=== PATIENT | male | born 1960 | race Caucasian/White ===

== ENCOUNTER 2019-01-05 05:30 | Inpatient (IN) | payer BC, OTHER ==
[2018-12-24 12:28] LABS: HEMATOCRIT 39.9 % (42.0-52.0); HEMOGLOBIN 13.7 gm/dL (14.0-18.0); MCH 30.8 pg (26.0-34.0); MCHC 34.4 g/dL (28.0-37.0); MCV 89.6 fL (80.0-100.0); RBC 4.45 mil/uL (4.50-6.00)
[2018-12-24 12:31] LABS: URINE BILIRUBIN NEGATIVE (Negative); URINE BLOOD NEGATIVE (Negative); URINE CLARITY CLEAR; URINE COLOR YELLOW; URINE GLUCOSE-RANDOM* NEGATIVE (Negative); URINE KETONES NEGATIVE (Negative); URINE LEUKOCYTES-REFLEX NEGATIVE (Negative); URINE NITRITE-REFLEX NEGATIVE (Negative); URINE PROTEIN (DIPSTICK) NEGATIVE (Negative); URINE UROBILINOGEN 0.2 E.U./dl (0.2-1.0)
[2018-12-24 12:39] LABS: PROTIME 10.3 Seconds (9.3-11.4)
[2018-12-24 12:45] LABS: ALBUMIN 4.2 g/dL (3.4-5.0); CALCIUM 9.9 mg/dL (8.5-10.1); CREATININE 1.3 mg/dL (0.7-1.3); POTASSIUM 4.1 mmol/L (3.5-5.1)
[2018-12-25 01:06] LABS: GLYCOHEMOGLOBIN (HGB A1C) 7.5 % (4.8-5.6)
--- NOTE | 2018-12-25 08:07 | EKG ---
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
[~2019-01-05] VITALS: Ht 167.6 cm; Wt 101.6 kg
[~2019-01-05 05:30] MED LIST: CELEXA20 MG PO; FENOFIBRATE145 MG PO; HYDROCHLOROTHIA25 M2 PO; IBUPROFEN 600600 M1 PO; LISINOPRIL2.5 MG PO; METFORMIN HCL500 MG PO; TOPROL XL100 MG PO; XANAX 0.25 MG0.25 MG PO
[2019-01-05 11:19] VITALS: BP 122/60
[2019-01-05 19:10] VITALS: BP 132/75
[2019-01-05 23:55] VITALS: BP 110/54
[2019-01-06 03:40] VITALS: BP 93/50
[2019-01-06 04:46] VITALS: BP 95/53
[2019-01-06 04:53] VITALS: BP 113/65
[2019-01-06 05:41] LABS: HEMATOCRIT 33.7 % (42.0-52.0); HEMOGLOBIN 11.3 gm/dL (14.0-18.0); MCH 30.5 pg (26.0-34.0); MCHC 33.7 g/dL (28.0-37.0); MCV 90.5 fL (80.0-100.0); RBC 3.72 mil/uL (4.50-6.00); RDW 14.1 % (10.5-14.5); WBC 14.3 thou/uL (4.0-11.0)
[2019-01-06 07:38] VITALS: BP 111/62
--- NOTE | 2019-01-06 08:53 | O ---
[facility] [place] [address] OPERATIVE REPORT Name: IRON CHAUDHARY Room #: 457-P ADM IN M.R.#: [id number] Admission: 01/05/19 Attend Phys: Randy Jurado MD Discharge: Date of : 60 Report #: [id number] THIS REPORT FOR: //name// CC: Werner Jurado DATE OF SERVICE: 01/05/2019 PREOPERATIVE DIAGNOSIS: Left hip osteoarthritis. POSTOPERATIVE DIAGNOSIS: Left hip osteoarthritis. PROCEDURE: Left total hip arthroplasty. SURGEON: Randy Jurado MD. WELDING MACHINE OPERATOR/TENDER: Angela Medeiros PA-C. INDICATIONS FOR WELDING MACHINE OPERATOR/TENDER: Throughout the case, extensive retraction and manipulation of the hip was required. This was afforded to me by my housing assistant property manager including dislocation as well as reduction. ANESTHESIA: LMA. IMPLANTS: [employer] size 56 R3 acetabular cup with 1 acetabular screw, a size 11 high offset Synergy press fit stem and a size 40 -4 Oxinium head. ESTIMATED BLOOD LOSS: 100 mL. COMPLICATIONS: None. SPECIMENS: None. CONDITION UPON LEAVING THE OPERATING ROOM: Stable. INDICATIONS FOR PROCEDURE: The patient is a 58-year-old gentleman with left hip osteoarthritis, had failed conservative measures for this and after discussion with him, he elected for left total hip arthroplasty. DESCRIPTION OF PROCEDURE: Risks, benefits, alternatives, complications were discussed in detail with the patient including but not limited to risk of anesthesia, risk of damage to nerves, arteries, blood vessels, risk for infection, bleeding, risk for continued hip pain, leg length discrepancy, instability and need for reoperation. Informed consent was obtained from the patient. Left hip was appropriately marked in the preoperative holding area. IV Ancef was given for preoperative antibiotics. He was brought to the [facility] [address] [place] [address] OPERATIVE REPORT Name: CHAUDHARYIRON Room #: 457-P [facility] IN M.R.#: [id number] Admission: 01/05/19 Attend Phys: Randy Jurado MD Discharge: Date of : 60 Report #: [id number] operating room and placed in supine position on operating room table. General anesthesia was induced without complication. He was then placed in the right lateral decubitus position with the left hip uppermost. Left hip and lower extremity were prepped and draped in normal sterile fashion. Timeout was performed properly identifying the patient and procedure as well as the instrumentation. All in the operating room were in agreement. Standard posterior approach to the hip was made with 10 blade through the skin. Dissection was taken down to the fascia with Bovie cautery and fascia was cleaned with Bolanos elevator. Fresh 10 blade was used to make a fascial incision. This was taken proximally and distally with curved Mckeon scissor. Charnley retractor was placed. Trochanteric bursa was taken down with Bovie cautery. Piriformis tendon was identified, tagged and taken down with Bovie. Short external rotators were also taken down with Bovie cautery. Capsulotomy was made and capsule ends were tagged for later repair. Hip was dislocated. There was extensive osteoarthritic change of the femoral head. Femoral neck cut was made 1 cm proximal to lesser trochanter based on preoperative templating and the femoral head was removed. Deep acetabular retractors were placed. Labrum was removed sharply. Pulvinar was removed with Bovie cautery. Acetabulum was then sequentially reamed up to a size 56 at which point there was excellent bleeding cancellous bone. This was trialed with a size 55 cup and found to have good fit. Final size 56 R3 acetabular cup was placed and seated. One acetabular screw was placed for backup fixation and polyethylene liner for a 40 head was placed. Attention was then turned to the femur. This was reamed and broached up to a size 11, at which point, the size 11 broach was stable, was trialed with a 40+0 head. Hip was reduced, taken through range of motion, found to be stable, found to have equal leg lengths. Hip was dislocated and the broach was removed and final size 11 high offset Synergy press fit stem was placed. The stem did not seat as deeply as the broach and so we trialled a 40 -4 head. Hip was reduced, taken through range of motion, found to be stable, found to have equal leg lengths. Hip was dislocated one last time and the trial head was removed. Final size 40 -4 Oxinium head was placed. Hip was reduced, taken through range of motion, found to be stable, found to have equal leg lengths. Hip was thoroughly irrigated with normal saline. A gram of vancomycin was placed deep in the joint. Periarticular injection consisting of morphine, ropivacaine, epinephrine and Toradol was placed around the hip joint capsule. The capsule and piriformis were repaired with 0 FiberWire. Fascia was closed with 0 Vicryl, skin was closed with 2-0 Vicryl, 3-0 Monocryl. Dermabond and a BIJAN dressing was applied. The patient tolerated this procedure well and went to recovery room under care of anesthesia postoperatively. <ELECTRONICALLY SIGNED> By: Randy Jurado MD 01/06/19 0853 1647 1743 Randy Jurado MD /nt
[2019-01-06] MEDS ORDERED: NEURONTIN 300300 M1 PO (11:13)
[2019-01-06] MEDS ORDERED: ASPIR 8181 MG PO (11:13)
[2019-01-06 12:04] VITALS: BP 111/62
== END 2019-01-06 16:49 | disposition home or self-care (01) | DRG 470 ==
LOC: PRE 05:30 → TBA 10:26 → PRE 11:43 → 4W 16:34 → ENTRNSPT 01-06 16:26 → 4W 01-06 16:49
PROVIDERS: ADMIT Orthopaedic Surgery
PROC: 0SRB06A Replacement of Left Hip Joint with Oxidized Zirconium on Polyethylene Synthetic Substitute, Uncemented, Open Approach (ICD-10-PCS; principal; 2019-01-05)
DX: M16.12 Unilateral primary osteoarthritis, left hip (principal); I10 Essential (primary) hypertension; E11.9 Type 2 diabetes mellitus without complications; E66.01 Morbid (severe) obesity due to excess calories; Z68.36 Body mass index [BMI] 36.0-36.9, adult; Z90.49 Acquired absence of other specified parts of digestive tract; Z79.899 Other long term (current) drug therapy
CPT/HCPCS: 10047; 50010; 50101; 50382; 50414; 53000; 53078; 53368; 54118; 56524; 56527; 56528; 56530; 57095; 57103; 62110; 62900; 70005